=== PATIENT | male | born 1995 | race Caucasian/White ===

== ENCOUNTER 2018-03-13 21:52 | Emergency (ER) | payer BC ==
[2018-03-13 22:03] VITALS: BP 136/73
--- NOTE | 2018-03-13 22:08 | UC ---
Lower Extremity/Ankle HPI - HPI Summary HPI Summary: Per bench chemist: "was hit in left ankle with a hockey puck about 30 mins ago. c/ o pain on inside of left ankle." -he got hit with puck very hard over his skate. unable to bear weight. unable to rotate his ankle at all. significant welling that is progressing. -injury occured in 1st period and he continued to play through the end of the game. - History of Current Complaint Chief Complaint: UCLowerExtremity Stated Complaint: LEFT ANKLE INJURY Time Seen by Provider: 03/13/18 21:54 Pain Intensity: 6 - Allergies/Home Medications Allergies/Adverse Reactions: Allergies Allergy/AdvReac Type Severity Reaction Status Date / Time No Known Allergies Allergy Verified 03/13/18 22:01 Home Medications: Home Medications NK [No Home Medications Reported] 03/13/18 [History Confirmed 03/13/18] PMH/Surg Hx/FS Hx/Imm Hx Previously Healthy: Yes - Surgical History Surgical History: None - Family History Known Family History: Positive: Hypertension - Social History Alcohol Use: Weekly Substance Use Type: None Smoking Status (MU): Never Smoked Tobacco Review of Systems All Other Systems Reviewed And Are Negative: Yes Constitutional: Positive: Negative Skin: Positive: Negative Eyes: Positive: Negative ENT: Positive: Negative Respiratory: Positive: Negative Cardiovascular: Positive: Negative Gastrointestinal: Positive: Negative Genitourinary: Positive: Negative Motor: Positive: Negative Neurovascular: Positive: Negative Musculoskeletal: Positive: Arthralgia, Decreased ROM Neurological: Positive: Negative Psychological: Positive: Negative Physical Exam Triage Information Reviewed: Yes Appearance: Pain Distress - w/ crutches Vital Signs: Initial Vital Signs Temp 98.2 F 03/13/18 21:58 Pulse 81 03/13/18 21:58 Resp 16 03/13/18 21:58 BP 136/73 03/13/18 21:58 Pulse Ox 100 03/13/18 21:58 Eye Exam: Normal Respiratory Exam: Normal Cardiovascular Exam: Normal Musculoskeletal: Positive: Other: - medial left maleoulus w/ significant tenderness, moderate swelling & erythema. no bruising. unable to medially/ laterally rotate. unable to romario or invert. + 2 DP/PT b/l. CR brisk. sensation intact Neurological Exam: Normal Psychological Exam: Normal Skin Exam: Normal Lower Extremity Course/Dx - Course Course Of Treatment: rt ankle xray- non-displaced fracture distal tibea. Pt understands that this is not an official radiology evaluation and he should call back in AM for the official read. Understands that it can take up to 2 weeks for a frx to be appreciated on an xray. Regardless, he should not RTP until he is cleared by orthopedic mechanic. - Differential Dx/Diagnosis Differential Diagnosis/HQI/PQRI: Contusion, Fracture (Closed), Sprain, Strain Provider Diagnosis: Closed left tibial fracture Discharge - Sign-Out/Discharge Documenting (check all that apply): Patient Departure All imaging exams completed and their final reports reviewed: No - Discharge Plan Condition: Stable Disposition: HOME Patient Education Materials: Ankle Fracture (ED) Referrals: No Primary Care Phys,NOPCP [Primary Care Provider] - Errol Buckley MD [Medical Doctor] - 3 Days Additional Instructions: You should call back in the morning for the official evaluation of the xray by the radiologist. You should not return to play until you are cleared by orthopedic mechanic. -Ice and rest. Do not weight bear at all as this may worsen the fracture and displace it further. Continue to use the crutches -You can take OTC ibuprofen for pain 600mgs every 8 hrs. -No driving until cleared. - Billing Disposition and Condition Condition: STABLE Disposition: Home
[2018-03-13] MEDS ORDERED: Ibuprofen TAB* 600 MG PO ONE (22:23)
--- NOTE | 2018-03-14 13:09 | ED ---
Progress - Progress Note Progress Note: final read reviewed, and medial malleolus fracture confirmed by radiologist. Course/Dx - Course Course Of Treatment: rt ankle xray- non-displaced fracture distal tibea. Pt understands that this is not an official radiology evaluation and he should call back in AM for the official read. Understands that it can take up to 2 weeks for a frx to be appreciated on an xray. Regardless, he should not RTP until he is cleared by orthopedic podiatrist. - Diagnoses Provider Diagnoses: Closed left tibial fracture Discharge - Sign-Out/Discharge Documenting (check all that apply): Patient Departure All imaging exams completed and their final reports reviewed: Yes - Discharge Plan Condition: Stable Disposition: HOME Patient Education Materials: Ankle Fracture (ED) Referrals: Errol Buckley MD [Medical Doctor] - 3 Days No Primary Care Phys,NOPCP [Primary Care Provider] - Additional Instructions: You should call back in the morning for the official evaluation of the xray by the radiologist. You should not return to play until you are cleared by orthopedic podiatrist. -Ice and rest. Do not weight bear at all as this may worsen the fracture and displace it further. Continue to use the crutches -You can take OTC ibuprofen for pain 600mgs every 8 hrs. -No driving until cleared. - Billing Disposition and Condition Condition: STABLE Disposition: Home
== END 2018-03-13 22:35 | disposition home or self-care (01) ==
LOC: UCCORT 21:52
DX: S82.55XA Nondisplaced fracture of medial malleolus of left tibia, initial encounter for closed fracture (principal); W21.220A Struck by ice hockey puck, initial encounter; Y93.65 Activity, lacrosse and field hockey; Y92.9 Unspecified place or not applicable
CPT/HCPCS: 99203; A9270-GY; G0463